=== PATIENT | male | born 1965 | race Asian ===

== ENCOUNTER 2018-08-28 18:07 | Inpatient (IN) | payer MEDICAID, OTHER ==
[2018-08-28 19:06] LABS: ADD MAN DIFF? NO
[2018-08-28] MEDS: PIPER-TAZO 3.375 GM IV (PMX) 100 ML IVPB (19:14)
[2018-08-28] MEDS: ACETAMINOPHEN 325 MG TAB PO (19:14)
[2018-08-28] MEDS: SODIUM CHLORIDE 0.9% 1L BAG IV* (19:15)
[2018-08-28 19:24] LABS: ABNORMAL IP MESSAGE 1; BASOPHIL # 0.1 10^3/ul (0.0-0.1); BASOPHILS % 0.5 % (0.0-2.0); EOSINOPHILS # 0.1 10^3/ul (0.0-0.5); EOSINOPHILS % 0.3 % (0.0-7.0); HEMATOCRIT 38.2 % (42.0-52.0); HEMOGLOBIN 12.5 g/dl (14.0-18.0); LYMPHOCYTES # 1.2 10^3/ul (0.8-2.9); LYMPHOCYTES % 7.4 % (15.0-51.0); MEAN CORPUSCULAR HEMOGLOBIN 30.3 pg (29.0-33.0); MEAN CORPUSCULAR HGB CONC 32.7 g/dl (32.0-37.0); MEAN CORPUSCULAR VOLUME 92.5 fl (82.0-101.0); MEAN PLATELET VOLUME 9.8 fl (7.4-10.4); MONOCYTE # 1.7 10^3/ul (0.3-0.9); MONOCYTES % 10.1 % (0.0-11.0); NEUTROPHIL # 13.4 10^3/ul (1.6-7.5); NEUTROPHILS % 80.1 % (39.0-77.0); PLATELET COUNT 334 10^3/UL (140-415); POSITIVE DIFF @See below; RED BLOOD COUNT 4.13 10^6/ul (4.70-6.10); RED CELL DISTRIBUTION WIDTH 12.9 % (11.5-14.5)
[2018-08-28 19:24] LABS: WHITE BLOOD COUNT 16.7 10^3/ul (4.8-10.8)
[2018-08-28 19:32] LABS: INR 1.06; PROTIME 13.9 Sec (11.9-14.9); PT RATIO 1.1
[2018-08-28 19:34] LABS: PARTIAL THROMBOPLASTIN TIME 42.4 Sec (23.0-35.0)
[2018-08-28 19:35] LABS: ALANINE AMINOTRANSFERASE 87 IU/L (13-69); ALBUMIN/GLOBULIN RATIO 1.08; ALKALINE PHOSPHATASE 153 IU/L (42-121); ANION GAP 14 (5-13); ASPARTATE AMINO TRANSFERASE 94 IU/L (15-46); BILIRUBIN,INDIRECT 0.1 mg/dl (0-1.1); BILIRUBIN,TOTAL 0.1 mg/dl (0.2-1.3); BLOOD UREA NITROGEN 17 mg/dl (7-20); CALCIUM 9.1 mg/dl (8.4-10.2); CARBON DIOXIDE 26 mmol/L (21-31); CHLORIDE 98 mmol/L (97-110); CREATININE 1.02 mg/dl (0.61-1.24); Estimated GFR > 60 mL/min (>60); GLUCOSE 134 mg/dl (70-220); POTASSIUM 3.4 mmol/L (3.5-5.1); SODIUM 138 mmol/L (135-144); TOTAL PROTEIN 7.7 g/dl (6.1-8.1)
[2018-08-28 19:47] LABS: TROPONIN-I < 0.012 ng/ml (0.000-0.120)
[2018-08-28] MEDS ORDERED: BISACODYL (EC) 5 MG TAB PO (20:00)
[2018-08-28] MEDS ORDERED: ONDANSETRON 4 MG TAB PO (20:00)
[2018-08-28] MEDS ORDERED: ONDANSETRON 4 MG INJ IV (20:00)
[2018-08-28] MEDS ORDERED: NACL 0.9% 3 ML SYG IV (20:00)
[2018-08-28] MEDS ORDERED: ENOXAPARIN 40 MG/0.4 ML SYG SC (20:00)
[2018-08-28] MEDS ORDERED: DOCUSATE SODIUM 100 MG CAP PO (20:00)
[2018-08-28] MEDS: VANCOMYCIN 1 GM (PMX) 250 ML IVPB (20:26)
[2018-08-28] MEDS: morphine 4 MG/ML VIAL IV (20:36)
[2018-08-28] MEDS ORDERED: VANCOMYCIN IV PER PHARMACY XX (22:00)
[2018-08-28 22:06] LABS: ERYTHROCYTE SEDIMENTATION RATE 118 mm/Hr (0-20)
[2018-08-28 23:07] LABS: LACTIC ACID 1.7 mmol/L (0.5-2.0)
[2018-08-28] MEDS: ENOXAPARIN 80 MG/0.8 ML SYG SC (23:49)
[2018-08-28] MEDS: POTASSIUM CHLORIDE (SR) 20 MEQ TAB PO (23:50)
[2018-08-28] MEDS: AMLODIPINE 10 MG TAB PO (23:52)
[2018-08-29 00:59] LABS: ADD UMIC YES; UR AMORPHOUS CRYSTAL FEW /HPF (NONE SEEN); UR ASCORBIC ACID NEGATIVE (NEGATIVE); UR BACTERIA FEW /HPF (NONE SEEN); UR BILIRUBIN (Dip) NEGATIVE (NEGATIVE); UR BLOOD (Dip) 1+ mg/dL (NEGATIVE); UR CLARITY CLOUDY (CLEAR); UR COLOR YELLOW (YELLOW); UR GLUCOSE (Dip) NEGATIVE (NEGATIVE); UR HYALINE CAST FEW /HPF (NONE SEEN); UR KETONES (Dip) NEGATIVE (NEGATIVE); UR LEUKOCYTE ESTERASE (Dip) NEGATIVE Leu/ul (NEGATIVE); UR MUCUS FEW /HPF (NONE SEEN); UR NITRITE (Dip) NEGATIVE (NEGATIVE); UR RBC 11 /HPF (0-5); UR TOTAL PROTEIN (Dip) 2+ mg/dl (NEGATIVE); UR UROBILINOGEN (Dip) 2+ mg/dL (NEGATIVE); UR WBC 4 /HPF (0-5)
[2018-08-29] MEDS: VANCOMYCIN 1 GM 250 ML IVPB ×2 (04:40→17:12)
[2018-08-29 05:18] LABS: ADD MAN DIFF? NO
[2018-08-29 05:22] LABS: BASOPHIL # 0.1 10^3/ul (0.0-0.1); BASOPHILS % 0.5 % (0.0-2.0); EOSINOPHILS # 0.1 10^3/ul (0.0-0.5); HEMATOCRIT 33.1 % (42.0-52.0); HEMOGLOBIN 11.1 g/dl (14.0-18.0); LYMPHOCYTES # 1.3 10^3/ul (0.8-2.9); LYMPHOCYTES % 9.5 % (15.0-51.0); MEAN CORPUSCULAR HEMOGLOBIN 30.7 pg (29.0-33.0); MEAN CORPUSCULAR HGB CONC 33.5 g/dl (32.0-37.0); MEAN CORPUSCULAR VOLUME 91.7 fl (82.0-101.0); MEAN PLATELET VOLUME 9.9 fl (7.4-10.4); MONOCYTE # 0.6 10^3/ul (0.3-0.9); NEUTROPHIL # 11.4 10^3/ul (1.6-7.5); NEUTROPHILS % 83.5 % (39.0-77.0); PLATELET COUNT 311 10^3/UL (140-415); RED BLOOD COUNT 3.61 10^6/ul (4.70-6.10); RED CELL DISTRIBUTION WIDTH 13.1 % (11.5-14.5)
[2018-08-29 05:22] LABS: WHITE BLOOD COUNT 13.6 10^3/ul (4.8-10.8)
[2018-08-29 05:37] LABS: LACTIC ACID 1.1 mmol/L (0.5-2.0)
[2018-08-29 05:40] LABS: ALANINE AMINOTRANSFERASE 95 IU/L (13-69); ALBUMIN 3.2 g/dl (3.3-4.9); ALKALINE PHOSPHATASE 138 IU/L (42-121); ANION GAP 13 (5-13); ASPARTATE AMINO TRANSFERASE 99 IU/L (15-46); BILIRUBIN,INDIRECT 0.1 mg/dl (0-1.1); BILIRUBIN,TOTAL 0.1 mg/dl (0.2-1.3); BLOOD UREA NITROGEN 15 mg/dl (7-20); CALCIUM 8.5 mg/dl (8.4-10.2); CARBON DIOXIDE 26 mmol/L (21-31); CHLORIDE 103 mmol/L (97-110); CHOL/HDL RATIO 11.5 RATIO; CHOLESTEROL 127 mg/dl (100-200); CREATININE 0.94 mg/dl (0.61-1.24); Estimated GFR > 60 mL/min (>60); GLUCOSE 118 mg/dl (70-220); HDL CHOLESTEROL 11 mg/dl (28-71); LDL CHOLESTEROL,CALCULATED 81 mg/dl; MAGNESIUM 2.1 mg/dl (1.7-2.5); POTASSIUM 3.9 mmol/L (3.5-5.1); SODIUM 142 mmol/L (135-144); TOTAL PROTEIN 6.4 g/dl (6.1-8.1); TRIGLYCERIDES 174 mg/dl (0-149)
[2018-08-29 05:42] LABS: HEMOGLOBIN A1C 5.9 % (0-5.9)
[2018-08-29 06:28] LABS: ERYTHROCYTE SEDIMENTATION RATE 110 mm/Hr (0-20)
[2018-08-29] MEDS: AMLODIPINE 10 MG TAB PO (09:00)
[2018-08-29] MEDS: ENOXAPARIN 80 MG/0.8 ML SYG SC ×2 (09:03→20:29)
[2018-08-29] MEDS: HYDROCODONE/APAP (5/325) TAB PO (17:40)
[2018-08-29] MEDS: ACETAMINOPHEN 325 MG TAB PO (20:28)
[2018-08-29 21:31] LABS: BARBITURATES Negative (NEGATIVE); BENZODIAZEPINES Negative (NEGATIVE); CANNABINOIDS Positive (NEGATIVE); COCAINE Negative (NEGATIVE); OPIATES Positive (NEGATIVE)
[2018-08-29 21:41] LABS: AMPHETAMINE/METHAMPHETAMINE POSITIVE (NEGATIVE)
[2018-08-30 03:36] LABS: ADD MAN DIFF? NO; HAAIG REFLEX REFLEX FILED
[2018-08-30 04:05] LABS: BASOPHIL # 0.1 10^3/ul (0.0-0.1); BASOPHILS % 0.4 % (0.0-2.0); EOSINOPHILS # 0.2 10^3/ul (0.0-0.5); EOSINOPHILS % 1.4 % (0.0-7.0); HEMATOCRIT 33.8 % (42.0-52.0); HEMOGLOBIN 11.1 g/dl (14.0-18.0); LYMPHOCYTES # 1.8 10^3/ul (0.8-2.9); LYMPHOCYTES % 14.1 % (15.0-51.0); MEAN CORPUSCULAR HEMOGLOBIN 30.6 pg (29.0-33.0); MEAN CORPUSCULAR HGB CONC 32.8 g/dl (32.0-37.0); MEAN CORPUSCULAR VOLUME 93.1 fl (82.0-101.0); MEAN PLATELET VOLUME 9.8 fl (7.4-10.4); MONOCYTE # 0.9 10^3/ul (0.3-0.9); MONOCYTES % 6.9 % (0.0-11.0); NEUTROPHIL # 9.3 10^3/ul (1.6-7.5); NEUTROPHILS % 74.7 % (39.0-77.0); PLATELET COUNT 368 10^3/UL (140-415); RED BLOOD COUNT 3.63 10^6/ul (4.70-6.10); RED CELL DISTRIBUTION WIDTH 13.2 % (11.5-14.5)
[2018-08-30 04:05] LABS: WHITE BLOOD COUNT 12.4 10^3/ul (4.8-10.8)
[2018-08-30 04:16] LABS: ALANINE AMINOTRANSFERASE 82 IU/L (13-69); ALBUMIN 3.2 g/dl (3.3-4.9); ALBUMIN/GLOBULIN RATIO 0.88; ALKALINE PHOSPHATASE 140 IU/L (42-121); ANION GAP 11 (5-13); ASPARTATE AMINO TRANSFERASE 52 IU/L (15-46); BILIRUBIN,INDIRECT 0.2 mg/dl (0-1.1); BILIRUBIN,TOTAL 0.2 mg/dl (0.2-1.3); BLOOD UREA NITROGEN 12 mg/dl (7-20); CALCIUM 8.8 mg/dl (8.4-10.2); CARBON DIOXIDE 29 mmol/L (21-31); CHLORIDE 100 mmol/L (97-110); Estimated GFR > 60 mL/min (>60); GLUCOSE 127 mg/dl (70-220); POTASSIUM 3.8 mmol/L (3.5-5.1); SODIUM 140 mmol/L (135-144); TOTAL PROTEIN 6.8 g/dl (6.1-8.1)
[2018-08-30 04:17] LABS: MAGNESIUM 2.2 mg/dl (1.7-2.5)
[2018-08-30 04:17] LABS: PHOSPHORUS 3.7 mg/dl (2.5-4.9)
[2018-08-30 04:22] LABS: IRON 30 ug/dl (35-150)
[2018-08-30 04:32] LABS: % IRON SATURATION 13 % SAT (22-52); TOTAL IRON BINDING CAPACITY 240 ug/dl (241-421)
[2018-08-30 04:46] LABS: VANCOMYCIN,TROUGH 6.1 ug/ml (10.0-20.0)
[2018-08-30 04:49] LABS: HEPATITIS B SURFACE ANTIGEN NEGATIVE (NEGATIVE)
[2018-08-30] MEDS: VANCOMYCIN 1 GM 250 ML IVPB ×3 (04:55→20:20)
[2018-08-30 06:12] LABS: HEPATITIS B CORE ANTIBODY NEGATIVE (NEGATIVE); HEPATITIS C VIRAL ANTIBODY NEGATIVE (NEGATIVE)
[2018-08-30] MEDS: ENOXAPARIN 80 MG/0.8 ML SYG SC ×2 (08:24→20:22)
[2018-08-30] MEDS: AMLODIPINE 10 MG TAB PO (08:24)
[2018-08-30] MEDS: morphine 4 MG/ML VIAL IV ×2 (13:38→20:32)
[2018-08-31 04:07] LABS: ABNORMAL IP MESSAGE 1; HEMATOCRIT 36.5 % (42.0-52.0); HEMOGLOBIN 12.2 g/dl (14.0-18.0); MEAN CORPUSCULAR HEMOGLOBIN 30.3 pg (29.0-33.0); MEAN CORPUSCULAR HGB CONC 33.4 g/dl (32.0-37.0); MEAN CORPUSCULAR VOLUME 90.8 fl (82.0-101.0); MEAN PLATELET VOLUME 9.7 fl (7.4-10.4); PLATELET COUNT 537 10^3/UL (140-415); POSITIVE DIFF @See below; RED BLOOD COUNT 4.02 10^6/ul (4.70-6.10)
[2018-08-31 04:07] LABS: WHITE BLOOD COUNT 12.1 10^3/ul (4.8-10.8)
[2018-08-31 04:08] LABS: ADD MAN DIFF? YES
[2018-08-31 04:23] LABS: ANION GAP 12 (5-13); BLOOD UREA NITROGEN 13 mg/dl (7-20); CALCIUM 9.3 mg/dl (8.4-10.2); CARBON DIOXIDE 26 mmol/L (21-31); CHLORIDE 100 mmol/L (97-110); CREATININE 0.83 mg/dl (0.61-1.24); Estimated GFR > 60 mL/min (>60); GLUCOSE 112 mg/dl (70-220); POTASSIUM 4.5 mmol/L (3.5-5.1); SODIUM 138 mmol/L (135-144)
[2018-08-31 04:40] LABS: BAND NEUTROPHILS #M 0.4 10^3/ul (0.0-0.6); BAND NEUTROPHILS % (M) 4 % (0-4); BASOPHIL #M 0.2 10^3/ul (0.0-0.0); BASOPHILS % (M) 2 % (0-2); GIANT THROMBO% (M) 1 % (0-0); LYMPHOCYTES % (M) 17 % (15-51); MONOCYTE #M 0.3 10^3/ul (0.3-0.9); MONOCYTES % (M) 3 % (0-11); PLASMA CELLS #M 0.1 10^3/ul (0.0-0.0); PLASMAC%(M) 1 % (0); PLATELET ESTIMATE INCREASED; POIKILOCYTOSIS 1+ (0-0); SEG NEUT #M 8.9 10^3/ul (1.6-7.5); SEGMENTED NEUTROPHILS (M) % 73 % (39-77); SMUDGE%M 23 % (0-0)
[2018-08-31 04:48] LABS: VANCOMYCIN,TROUGH 11.3 ug/ml (10.0-20.0)
[2018-08-31] MEDS: VANCOMYCIN 1 GM 250 ML IVPB ×3 (05:27→20:12)
[2018-08-31] MEDS: morphine 4 MG/ML VIAL IV ×4 (06:00→20:20)
[2018-08-31] MEDS: ENOXAPARIN 80 MG/0.8 ML SYG SC ×2 (08:39→20:18)
[2018-08-31] MEDS: AMLODIPINE 5 MG TAB PO (08:39)
[2018-08-31] MEDS: AMMONIUM LACTATE 12% 225 GM LOT TOP (09:02)
[2018-08-31] MEDS: CLOTRIMAZOLE 1% 30 GM CR TOP ×2 (09:03→20:23)
[2018-08-31] MEDS: IOHEXOL 300MG/ML 150 ML BTL (11:57)
[2018-08-31] MEDS: SOD CHLORIDE 0.9% 100 ML (11:57)
[2018-08-31] MEDS: MAGNESIUM HYDROXIDE 30ML CUP PO (16:14)
[2018-08-31 17:32] LABS: C-REACTIVE PROTEIN 7.7 mg/dl (0.0-0.9)
[2018-08-31 18:12] LABS: ERYTHROCYTE SEDIMENTATION RATE 109 mm/Hr (0-20)
[2018-09-01 04:10] LABS: OCCULT BLOOD STOOL NEGATIVE (NEGATIVE)
[2018-09-01] MEDS: VANCOMYCIN 1 GM 250 ML IVPB ×3 (05:22→20:02)
[2018-09-01] MEDS: ENOXAPARIN 80 MG/0.8 ML SYG SC ×2 (08:44→20:50)
[2018-09-01] MEDS: AMLODIPINE 5 MG TAB PO (08:44)
[2018-09-01] MEDS: AMMONIUM LACTATE 12% 225 GM LOT TOP (08:49)
[2018-09-01] MEDS: CLOTRIMAZOLE 1% 30 GM CR TOP ×2 (08:49→20:49)
[2018-09-01] MEDS: morphine 4 MG/ML VIAL IV (14:43)
[2018-09-01] MEDS ORDERED: morphine LIQ (10 MG/5 ML) CUP PO (15:30)
[2018-09-02] MEDS: HYDROCODONE/APAP (5/325) TAB PO (01:16)
[2018-09-02] MEDS: VANCOMYCIN 1 GM 250 ML IVPB ×3 (04:38→20:15)
[2018-09-02 05:18] LABS: ADD MAN DIFF? NO
[2018-09-02 05:23] LABS: BASOPHIL # 0.1 10^3/ul (0.0-0.1); BASOPHILS % 0.7 % (0.0-2.0); EOSINOPHILS # 0.1 10^3/ul (0.0-0.5); EOSINOPHILS % 0.5 % (0.0-7.0); HEMATOCRIT 38.1 % (42.0-52.0); HEMOGLOBIN 12.4 g/dl (14.0-18.0); LYMPHOCYTES % 16.7 % (15.0-51.0); MEAN CORPUSCULAR HEMOGLOBIN 29.8 pg (29.0-33.0); MEAN CORPUSCULAR HGB CONC 32.5 g/dl (32.0-37.0); MEAN CORPUSCULAR VOLUME 91.6 fl (82.0-101.0); MEAN PLATELET VOLUME 9.4 fl (7.4-10.4); MONOCYTE # 1.1 10^3/ul (0.3-0.9); MONOCYTES % 9.6 % (0.0-11.0); NEUTROPHIL # 8.1 10^3/ul (1.6-7.5); NEUTROPHILS % 68.6 % (39.0-77.0); PLATELET COUNT 707 10^3/UL (140-415); RED BLOOD COUNT 4.16 10^6/ul (4.70-6.10); RED CELL DISTRIBUTION WIDTH 13.2 % (11.5-14.5)
[2018-09-02 05:23] LABS: WHITE BLOOD COUNT 11.8 10^3/ul (4.8-10.8)
[2018-09-02 05:57] LABS: ALANINE AMINOTRANSFERASE 146 IU/L (13-69); ALBUMIN 3.7 g/dl (3.3-4.9); ALBUMIN/GLOBULIN RATIO 0.88; ALKALINE PHOSPHATASE 168 IU/L (42-121); ANION GAP 12 (5-13); ASPARTATE AMINO TRANSFERASE 114 IU/L (15-46); BLOOD UREA NITROGEN 17 mg/dl (7-20); CALCIUM 9.3 mg/dl (8.4-10.2); CARBON DIOXIDE 26 mmol/L (21-31); CHLORIDE 102 mmol/L (97-110); CREATININE 0.75 mg/dl (0.61-1.24); Estimated GFR > 60 mL/min (>60); GLUCOSE 103 mg/dl (70-220); POTASSIUM 4.7 mmol/L (3.5-5.1); SODIUM 140 mmol/L (135-144); TOTAL PROTEIN 7.9 g/dl (6.1-8.1)
[2018-09-02] MEDS: AMLODIPINE 5 MG TAB PO (08:26)
[2018-09-02] MEDS: ENOXAPARIN 80 MG/0.8 ML SYG SC ×2 (08:27→20:35)
[2018-09-02] MEDS: CLOTRIMAZOLE 1% 30 GM CR TOP ×2 (08:29→20:39)
[2018-09-02] MEDS: AMMONIUM LACTATE 12% 225 GM LOT TOP (08:29)
[2018-09-03] MEDS: VANCOMYCIN 1 GM 250 ML IVPB ×2 (04:37→12:55)
[2018-09-03 04:50] LABS: ADD MAN DIFF? NO
[2018-09-03 04:53] LABS: BASOPHIL # 0.1 10^3/ul (0.0-0.1); BASOPHILS % 0.9 % (0.0-2.0); EOSINOPHILS % 0.2 % (0.0-7.0); HEMATOCRIT 40.4 % (42.0-52.0); HEMOGLOBIN 12.9 g/dl (14.0-18.0); LYMPHOCYTES # 2.1 10^3/ul (0.8-2.9); LYMPHOCYTES % 15.6 % (15.0-51.0); MEAN CORPUSCULAR HEMOGLOBIN 29.5 pg (29.0-33.0); MEAN CORPUSCULAR HGB CONC 31.9 g/dl (32.0-37.0); MEAN CORPUSCULAR VOLUME 92.4 fl (82.0-101.0); MEAN PLATELET VOLUME 9.1 fl (7.4-10.4); MONOCYTE # 1.1 10^3/ul (0.3-0.9); MONOCYTES % 7.9 % (0.0-11.0); NEUTROPHIL # 9.9 10^3/ul (1.6-7.5); NEUTROPHILS % 73.5 % (39.0-77.0); PLATELET COUNT 771 10^3/UL (140-415); RED BLOOD COUNT 4.37 10^6/ul (4.70-6.10); RED CELL DISTRIBUTION WIDTH 12.9 % (11.5-14.5)
[2018-09-03 04:53] LABS: WHITE BLOOD COUNT 13.5 10^3/ul (4.8-10.8)
[2018-09-03 05:19] LABS: MAGNESIUM 2.4 mg/dl (1.7-2.5)
[2018-09-03 05:19] LABS: PHOSPHORUS 4.1 mg/dl (2.5-4.9)
[2018-09-03 05:23] LABS: ANION GAP 13 (5-13); BLOOD UREA NITROGEN 17 mg/dl (7-20); CALCIUM 9.3 mg/dl (8.4-10.2); CARBON DIOXIDE 25 mmol/L (21-31); CHLORIDE 102 mmol/L (97-110); CREATININE 0.81 mg/dl (0.61-1.24); Estimated GFR > 60 mL/min (>60); GLUCOSE 98 mg/dl (70-220); SODIUM 140 mmol/L (135-144)
[2018-09-03 05:28] LABS: POTASSIUM 4.5 mmol/L (3.5-5.1)
[2018-09-03] MEDS: CHOLECALCIFEROL 2,000 UNIT CAP PO (08:54)
[2018-09-03] MEDS: AMLODIPINE 5 MG TAB PO (08:54)
[2018-09-03] MEDS: ENOXAPARIN 80 MG/0.8 ML SYG SC (08:55)
[2018-09-03] MEDS: CLOTRIMAZOLE 1% 30 GM CR TOP ×2 (08:59→20:56)
[2018-09-03] MEDS: AMMONIUM LACTATE 12% 225 GM LOT TOP (08:59)
[2018-09-03 12:21] LABS: VANCOMYCIN,TROUGH 16.4 ug/ml (10.0-20.0)
[2018-09-03] MEDS: RIVAROXABAN 15 MG TABLET PO (20:12)
[2018-09-03] MEDS: DOXYCYCLINE 100 MG TAB PO (20:55)
[2018-09-04] MEDS: HYDROCODONE/APAP (5/325) TAB PO (01:52)
[2018-09-04] MEDS: RIVAROXABAN 15 MG TABLET PO (08:43)
[2018-09-04] MEDS: AMLODIPINE 5 MG TAB PO (08:44)
[2018-09-04] MEDS: CHOLECALCIFEROL 2,000 UNIT CAP PO (08:44)
[2018-09-04] MEDS: DOXYCYCLINE 100 MG TAB PO (08:44)
[2018-09-04] MEDS: AMMONIUM LACTATE 12% 225 GM LOT TOP (08:44)
[2018-09-04] MEDS: CLOTRIMAZOLE 1% 30 GM CR TOP (08:45)
[2018-09-04 11:49] LABS: ERYTHROCYTE SEDIMENTATION RATE 105 mm/Hr (0-20)
[2018-09-04 11:54] LABS: C-REACTIVE PROTEIN 1.3 mg/dl (0.0-0.9)
== END 2018-09-04 14:22 | disposition home or self-care (01) | DRG 872 ==
LOC: E/R 18:07 → PP2 19:55
PROVIDERS: Family Medicine
DX: A41.9 Sepsis, unspecified organism (principal); L03.115 Cellulitis of right lower limb; I82.4Z1 Acute embolism and thrombosis of unspecified deep veins of right distal lower extremity; B35.3 Tinea pedis; D63.8 Anemia in other chronic diseases classified elsewhere; F10.21 Alcohol dependence, in remission; F15.10 Other stimulant abuse, uncomplicated; F12.10 Cannabis abuse, uncomplicated; F17.200 Nicotine dependence, unspecified, uncomplicated; I10 Essential (primary) hypertension; R74.0 Nonspecific elevation of levels of transaminase and lactic acid dehydrogenase [LDH]; Z87.11 Personal history of peptic ulcer disease; Z98.1 Arthrodesis status
CPT/HCPCS: 36415; 71045; 73630; 73700; 80048; 80053; 80061; 80202; 80307; 81001; 82270; 82306; 82652; 82728; 83036; 83540; 83605; 83735; 84100; 84443; 84484; 85025; 85610; 85651; 85730; 86140; 86704; 86709; 86803; 87040; 87086; 87340; 93005; 93971; 96374; 97116; 97162; 99291-25